=== PATIENT | female | born 1965 | race Hispanic/Latino ===

== ENCOUNTER 2021-12-26 12:25 | Emergency (ER) | payer BC ==
[~2021-12-26] VITALS: Ht 152.4 cm; Wt 70.9 kg
[2021-12-26] MEDS ORDERED: LISINOPRIL20 MG PO (13:32)
[2021-12-26] MEDS ORDERED: LO-DOSE ASPIRIN81 MG PO (13:32)
[2021-12-26] MEDS ORDERED: MECLIZINE HCL25 MG PO (13:32)
[2021-12-26] MEDS ORDERED: LOSARTAN POTASS50 MG PO (13:32)
[2021-12-26] MEDS ORDERED: NAPROXEN500 MG PO (13:33)
[2021-12-26] MEDS ORDERED: PREDNISONE20 MG PO (14:09)
== END 2021-12-26 14:20 | disposition home or self-care (01) ==
LOC: ED 12:25
DX: M54.2 Cervicalgia (principal); I10 Essential (primary) hypertension; Z79.82 Long term (current) use of aspirin; Z79.899 Other long term (current) drug therapy
CPT/HCPCS: 20552; 99283-25; J7512